=== PATIENT | female | born 1970 | race Caucasian/White ===

== ENCOUNTER 2019-03-23 21:17 | Emergency (ER) | payer OTHER ==
[~2019-03-23] VITALS: Ht 149.9 cm; Wt 74.8 kg
[~2019-03-23 21:17] MED LIST: BUSPIRONE HCL5 MG PO; HYDROCODONE-AP1 EAC6 PO; LOPRESSOR50 PO; METFORMIN HCL500 MG PO; NORVASC10 MG PO; [UNRECOGNIZED DRUG - REMARK]
[2019-03-23 22:30] VITALS: BP 161/92
== END 2019-03-23 22:30 | disposition home or self-care (01) ==
LOC: M.ERS 21:17
DX: I10 Essential (primary) hypertension (principal); Z91.14 Patient's other noncompliance with medication regimen; Z90.10 Acquired absence of unspecified breast and nipple; Z90.710 Acquired absence of both cervix and uterus

== ENCOUNTER 2020-07-14 20:31 | Emergency (ER) | payer OTHER ==
[~2020-07-14] VITALS: Ht 147.3 cm; Wt 64.4 kg
[2020-07-14] MEDS ORDERED: AMARYL2 M1 PO (20:54)
[2020-07-14] MEDS ORDERED: TRAZODONE HCL100 MG PO (20:55)
[2020-07-14] MEDS ORDERED: FAMOTIDINE 20 M20 MG PO (20:55)
[2020-07-14 23:09] LABS: URINE BILIRUBIN NEGATIVE (Negative); URINE BLOOD TRACE (Negative); URINE CLARITY CLEAR; URINE COLOR YELLOW; URINE GLUCOSE-RANDOM 3+ (Negative); URINE KETONES TRACE (Negative); URINE LEUKOCYTES-REFLEX NEGATIVE (Negative); URINE NITRITE-REFLEX NEGATIVE (Negative); URINE PROTEIN NEGATIVE (Negative)
[2020-07-14 23:22] LABS: ABSOLUTE LYMPHOCYTES 1.7 thou/uL (0.8-5.3); ABSOLUTE MONOCYTES 0.5 thou/uL (0.0-1.2); ABSOLUTE NEUTROPHILS 5.5 thou/uL (1.6-8.1); BASOPHILS 0.6 %; EOSINOPHILS 0.1 %; HEMATOCRIT 44.4 % (37.0-47.0); HEMOGLOBIN 15.5 gm/dL (12.0-15.0); LYMPHOCYTES 22.1 %; MCH 33.5 pg (26.0-34.0); MCHC 34.9 g/dL (28.0-37.0); MCV 96.1 fL (80.0-100.0); MONOCYTES 6.2 %; MPV 6.5 fl. (7.2-11.1); NUCLEATED RBCS 0 /100WBC; PLATELET COUNT* 201 thou/uL (150-400); RBC 4.62 mil/uL (4.20-5.00); RDW-CV 14.7 % (10.5-14.5); WBC 7.7 thou/uL (4.0-11.0)
[2020-07-14 23:34] LABS: CALCIUM 9.6 mg/dL (8.5-10.1); POTASSIUM 3.9 mmol/L (3.5-5.1)
[2020-07-14 23:35] LABS: INR 1.1; PROTIME 11.1 Seconds (9.20-11.50)
[2020-07-14 23:44] LABS: ALBUMIN 3.9 g/dL (3.4-5.0); TOTAL BILIRUBIN 0.6 mg/dL (<0.1-1.0); TOTAL PROTEIN 7.4 g/dL (6.4-8.2)
--- NOTE | 2020-07-16 10:29 | EKG ---
[place] [address] ELECTROCARDIOGRAM REPORT Name: CASEY JAIMES Room: [facility]#: [id number] Admission: 07/14/20 Attend Phys: Discharge: 07/15/20 Date of : 70 Date of Service: 07/14/20 232 Report #: [id number] THIS REPORT FOR: //name// [facility] ED Test Date: 2020-07-14 Test Time: 23:21:52 Pat Name: CASEY JAIMES Department: Room: Gender: F T[place] Automatic: GALI : 1970 Requested By: Valeria Yanez Order Number: [id number] MD: Cornel Mendosa Measurements Intervals [place] Rate: 107 P: 37 [place]: 126 QRS: 11 QRSD: 82 T: 25 QT: 341 QTc: 455 Interpretive Statements Sinus tachycardia Low voltage, precordial leads No previous ECG available for comparison Electronically Signed On 07-16-2020 10:29:06 CDT by Cornel Mendosa [email or web address] <ELECTRONICALLY SIGNED> By: Cornel Mendosa MD, [facility] 07/16/20 1029 232 232 Cornel Mendosa MD, [facility] /EPI
== END 2020-07-15 01:57 | disposition home or self-care (01) ==
LOC: M.ERS 20:31
PROVIDERS: Emergency Medicine
DX: I10 Essential (primary) hypertension (principal); E11.65 Type 2 diabetes mellitus with hyperglycemia; Z90.710 Acquired absence of both cervix and uterus

== ENCOUNTER 2021-04-26 08:28 | Emergency (ER) | payer OTHER ==
[~2021-04-26] VITALS: Ht 149.9 cm; Wt 59.0 kg
[~2021-04-26 08:28] MED LIST changes: +AMARYL2 M1 PO; +FAMOTIDINE 20 M20 MG PO; +TRAZODONE HCL100 MG PO
[2021-04-26] MEDS ORDERED: AMOXICILLIN 50500 MG PO (08:40)
[2021-04-26] MEDS ORDERED: HUMALOG100 UNIT/1 SUBQ (08:40)
[2021-04-26] MEDS ORDERED: PREDNISONE 10 M10 MG PO (08:41)
[2021-04-26 09:23] LABS: ABSOLUTE LYMPHOCYTES 0.7 thou/uL (0.8-5.3); ABSOLUTE MONOCYTES 0.4 thou/uL (0.0-1.2); ABSOLUTE NEUTROPHILS 5.2 thou/uL (1.6-8.1); BASOPHILS 0.3 %; HEMATOCRIT 39.5 % (37.0-47.0); HEMOGLOBIN 13.6 gm/dL (12.0-15.0); MCH 33.8 pg (26.0-34.0); MCHC 34.4 g/dL (28.0-37.0); MCV 98.2 fL (80.0-100.0); MONOCYTES 6.3 %; MPV 6.7 fl. (7.2-11.1); NUCLEATED RBCS 0 /100WBC; PLATELET COUNT* 241 thou/uL (150-400); POLYS 82.4 %; RBC 4.02 mil/uL (4.20-5.00); RDW-CV 14.2 % (10.5-14.5); WBC 6.3 thou/uL (4.0-11.0)
[2021-04-26 09:30] LABS: PCO2 VENOUS 44.6 mmHg (41.0-51.0); PO2 VENOUS 33.6 mmHg (35.0-45.0)
[2021-04-26 09:42] LABS: CALCIUM 8.8 mg/dL (8.5-10.1); POTASSIUM 4.2 mmol/L (3.5-5.1)
[2021-04-26 09:43] LABS: ALBUMIN 3.4 g/dL (3.4-5.0); TOTAL BILIRUBIN 0.6 mg/dL (<0.1-1.0); TOTAL PROTEIN 7.7 g/dL (6.4-8.2)
[2021-04-26 10:01] VITALS: BP 164/78
== END 2021-04-26 10:02 | disposition home or self-care (01) ==
LOC: M.ERS 08:28
PROVIDERS: Family Medicine
DX: E11.65 Type 2 diabetes mellitus with hyperglycemia (principal); I10 Essential (primary) hypertension; Z79.2 Long term (current) use of antibiotics; Z79.84 Long term (current) use of oral hypoglycemic drugs; Z79.899 Other long term (current) drug therapy; Z90.710 Acquired absence of both cervix and uterus; Z98.890 Other specified postprocedural states